=== PATIENT | male | born 1995 | race Two or more races ===

== ENCOUNTER 2018-01-06 12:37 | Emergency (ER) | payer OTHER | END 2018-01-06 14:30 | disposition home or self-care (01) | LOC: ER 12:37 | DX: S29.9XXA Unspecified injury of thorax, initial encounter (principal); F10.20 Alcohol dependence, uncomplicated; W01.198A Fall on same level from slipping, tripping and stumbling with subsequent striking against other object, initial encounter; Y93.89 Activity, other specified; Y99.8 Other external cause status; Y92.89 Other specified places as the place of occurrence of the external cause | CPT/HCPCS: 71046; 71120; 99284 ==